=== PATIENT | female | born 1960 | race Caucasian/White ===

== ENCOUNTER 2024-11-24 11:22 | Emergency (ER) | payer OTHER ==
[~2024-11-24] VITALS: Ht 144.8 cm; Wt 70.3 kg
[2024-11-24 11:35] VITALS: TEMP 98.3
[2024-11-24] MEDS ORDERED: KETOROLAC TROMETHAMINE INJ 30 MG/ML VIAL ONE (12:01)
[2024-11-24] MEDS ORDERED: CYCLOBENZAPRINE 10 MG TABLET ONE (12:01)
[2024-11-24 12:05] VITALS: BP 167/77; O2SAT 97
[2024-11-24] MEDS: CYCLOBENZAPRINE 10 MG TABLET PO ONE (12:11)
[2024-11-24] MEDS: KETOROLAC TROMETHAMINE INJ 30 MG/ML VIAL IM ONE (12:12)
[2024-11-24] MEDS ORDERED: CYCL5TAB PO (12:33)
== END 2024-11-24 12:55 | disposition home or self-care (01) ==
LOC: ER 11:22
DX: M79.671 Pain in right foot (principal); E78.5 Hyperlipidemia, unspecified; I10 Essential (primary) hypertension; M19.90 Unspecified osteoarthritis, unspecified site
CPT/HCPCS: 99283; 96372; J1885